=== PATIENT | female | born 1935 | race Caucasian/White ===

== ENCOUNTER → 2016-07-05 | Outpatient (CLI) | payer MEDICARE, OTHER ==
[~2016-07-05] MED LIST: ENBREL; LEVO88TA36; MELO-86; METH2.5T3 PO; PREDPOW63
[2016-07-05 12:13] LABS: Basophils # (auto) 0 uL; Eosinophils # (auto) 0.2 uL; Eosinophils % (auto) 1.8 % (0.0-7.0); Hematocrit 38.9 % (36.0-46.0); Hemoglobin 12.9 g/dL (12.2-16.2); Lymphocytes # (auto) 1.4 uL; Lymphocytes % (auto) 11.5 % (10.0-50.0); Mean Corpuscular Hgb Conc. 33.2 g/dL (32.0-36.0); Mean Corpuscular Volume 90.5 fL (80.0-100.0); Mean Platelet Volume 8.6 fL (7.4-10.4); Monocytes % (auto) 8.1 % (0.0-12.0); Neutrophils # (auto) 9.4 uL; Neutrophils % (auto) 78.6 % (37.0-80.0); Platelet Count (auto) 320 10^3/uL (140-450); White Blood Cell 11.9 10^3/uL (4.4-10.8)
[2016-07-05 12:33] LABS: Albumin 3.3 g/dL (3.4-5.0); BUN/Creatinine Ratio 16.5; Bilirubin, Total 0.3 mg/dL (0.2-1.0); Calcium 9.4 mg/dL (8.5-10.1); Potassium 3.9 mmol/L (3.5-5.1); Total Protein 8.2 g/dL (6.4-8.2)
== END | disposition home or self-care (01) ==
LOC: LAB 11:45
DX: I10 Essential (primary) hypertension (principal); M06.9 Rheumatoid arthritis, unspecified; M25.50 Pain in unspecified joint; D64.9 Anemia, unspecified; Z79.899 Other long term (current) drug therapy
CPT/HCPCS: 36415; 80053; 85025; 85652; 86141

== ENCOUNTER → 2016-09-20 | Outpatient (CLI) | payer MEDICARE, OTHER ==
[2016-09-20 12:12] LABS: Basophils # (auto) 0 uL; Basophils % (auto) 0.4 % (0.0-2.0); CONDITION Y; Eosinophils # (auto) 0.4 uL; Eosinophils % (auto) 5.4 % (0.0-7.0); Hematocrit 37.4 % (36.0-46.0); Hemoglobin 12.5 g/dL (12.2-16.2); Lymphocytes # (auto) 1.7 uL; Lymphocytes % (auto) 24.6 % (10.0-50.0); Mean Corpuscular Hemoglobin 31.5 pg (28.0-32.0); Mean Corpuscular Hgb Conc. 33.5 g/dL (32.0-36.0); Mean Corpuscular Volume 94.1 fL (80.0-100.0); Mean Platelet Volume 8.6 fL (7.4-10.4); Monocytes # (auto) 0.8 uL; Monocytes % (auto) 11.8 % (0.0-12.0); Neutrophils % (auto) 57.8 % (37.0-80.0); Platelet Count (auto) 327 10^3/uL (140-450); Red Cell Distribution Width 16.5 % (11.6-16.0); White Blood Cell 6.8 10^3/uL (4.4-10.8)
[2016-09-20 12:33] LABS: Albumin 3.4 g/dL (3.4-5.0); BUN/Creatinine Ratio 26.3; Bilirubin, Total 0.4 mg/dL (0.2-1.0); Potassium 3.5 mmol/L (3.5-5.1); Total Protein 7.7 g/dL (6.4-8.2)
== END | disposition home or self-care (01) ==
LOC: LAB 11:43
DX: I10 Essential (primary) hypertension (principal); M06.9 Rheumatoid arthritis, unspecified; M25.50 Pain in unspecified joint; D64.9 Anemia, unspecified; Z79.899 Other long term (current) drug therapy
CPT/HCPCS: 36415; 80053; 85025; 85652; 86141

== ENCOUNTER → 2016-12-13 | Outpatient (CLI) | payer MEDICARE, OTHER ==
[2016-12-13 12:49] LABS: Basophils # (auto) 0.1 uL; Basophils % (auto) 0.8 % (0.0-2.0); Eosinophils # (auto) 0.3 uL; Eosinophils % (auto) 4.3 % (0.0-7.0); Hematocrit 37.7 % (36.0-46.0); Hemoglobin 12.8 g/dL (12.2-16.2); Lymphocytes # (auto) 1.7 uL; Lymphocytes % (auto) 22.3 % (10.0-50.0); Mean Corpuscular Hemoglobin 32.8 pg (28.0-32.0); Mean Corpuscular Hgb Conc. 33.9 g/dL (32.0-36.0); Mean Corpuscular Volume 96.6 fL (80.0-100.0); Mean Platelet Volume 8.5 fL (6.9-10.8); Monocytes % (auto) 13.7 % (0.0-12.0); Neutrophils # (auto) 4.4 uL; Neutrophils % (auto) 58.9 % (37.0-80.0); Platelet Count (auto) 263 10^3/uL (140-450); Red Cell Distribution Width 14.1 % (11.8-14.3); White Blood Cell 7.4 10^3/uL (4.4-10.8)
[2016-12-13 12:56] LABS: Albumin 3.6 g/dL (3.4-5.0); BUN/Creatinine Ratio 20.3; Bilirubin, Total 0.4 mg/dL (0.2-1.0); Calcium 9.6 mg/dL (8.5-10.1); Potassium 4.4 mmol/L (3.5-5.1); Total Protein 7.6 g/dL (6.4-8.2)
== END | disposition home or self-care (01) ==
LOC: LAB 11:41
DX: I10 Essential (primary) hypertension (principal); I70.0 Atherosclerosis of aorta; E78.00 Pure hypercholesterolemia, unspecified; D64.9 Anemia, unspecified; M06.9 Rheumatoid arthritis, unspecified; M25.50 Pain in unspecified joint; Z79.899 Other long term (current) drug therapy
CPT/HCPCS: 36415; 80053; 85025; 85652; 86141

== ENCOUNTER → 2017-03-07 | Outpatient (CLI) | payer MEDICARE, OTHER ==
[~2017-03-07] MED LIST changes: -MELO-86; +MELO1TAB56
[2017-03-07 12:22] LABS: Basophils # (auto) 0 uL; Basophils % (auto) 0.7 % (0.0-2.0); Eosinophils # (auto) 0.6 uL; Eosinophils % (auto) 8.1 % (0.0-7.0); Hematocrit 37.6 % (36.0-46.0); Hemoglobin 12.7 g/dL (12.2-16.2); Lymphocytes # (auto) 1.4 uL; Lymphocytes % (auto) 20.7 % (10.0-50.0); Mean Corpuscular Hemoglobin 32.9 pg (28.0-32.0); Mean Corpuscular Hgb Conc. 33.7 g/dL (32.0-36.0); Mean Corpuscular Volume 97.5 fL (80.0-100.0); Monocytes # (auto) 0.9 uL; Neutrophils # (auto) 3.9 uL; Neutrophils % (auto) 57.5 % (37.0-80.0); Nucleated Red Blood Cells % 0.1 %; Platelet Count (auto) 308 10^3/uL (140-450); Red Blood Cells 3.85 10^6/uL (4.0-5.20); Red Cell Distribution Width 14.4 % (11.8-14.3); White Blood Cell 6.8 10^3/uL (4.4-10.8)
[2017-03-07 12:47] LABS: Albumin 3.7 g/dL (3.4-5.0); BUN/Creatinine Ratio 16.9; Bilirubin, Total 0.3 mg/dL (0.2-1.0); CRP High Sensitivity 0.23 mg/dL (< 0.3); Calcium 9.2 mg/dL (8.5-10.1); Potassium 4.3 mmol/L (3.5-5.1); Total Protein 7.8 g/dL (6.4-8.2)
== END | disposition home or self-care (01) ==
LOC: LAB 11:42
DX: I10 Essential (primary) hypertension (principal); M06.9 Rheumatoid arthritis, unspecified; E78.00 Pure hypercholesterolemia, unspecified; I70.0 Atherosclerosis of aorta; D64.9 Anemia, unspecified; Z79.899 Other long term (current) drug therapy
CPT/HCPCS: 36415; 80053; 85025; 85652; 86141

== ENCOUNTER → 2017-04-30 | Outpatient (CLI) | payer MEDICARE, OTHER ==
[2017-04-30 13:23] LABS: Basophils # (auto) 0 uL; Basophils % (auto) 0.6 % (0.0-2.0); Eosinophils # (auto) 0.3 uL; Eosinophils % (auto) 4.4 % (0.0-7.0); Hematocrit 39.6 % (36.0-46.0); Hemoglobin 13.1 g/dL (12.2-16.2); Lymphocytes # (auto) 1.7 uL; Lymphocytes % (auto) 21.9 % (10.0-50.0); Mean Corpuscular Hemoglobin 32.2 pg (28.0-32.0); Mean Corpuscular Hgb Conc. 33.2 g/dL (32.0-36.0); Mean Corpuscular Volume 97.1 fL (80.0-100.0); Monocytes % (auto) 13.2 % (0.0-12.0); Neutrophils # (auto) 4.6 uL; Neutrophils % (auto) 59.9 % (37.0-80.0); Nucleated Red Blood Cells % 0.1 %; Platelet Count (auto) 288 10^3/uL (140-450); Red Blood Cells 4.08 10^6/uL (4.0-5.20); Red Cell Distribution Width 13.7 % (11.8-14.3); White Blood Cell 7.7 10^3/uL (4.4-10.8)
[2017-04-30 13:50] LABS: Albumin 3.7 g/dL (3.4-5.0); Potassium 4.3 mmol/L (3.5-5.1)
[2017-04-30 13:52] LABS: BUN/Creatinine Ratio 16.2
[2017-04-30 13:54] LABS: Bilirubin, Total 0.4 mg/dL (0.2-1.0); Total Protein 8.4 g/dL (6.4-8.2)
== END | disposition home or self-care (01) ==
LOC: LAB 12:57
DX: M06.9 Rheumatoid arthritis, unspecified (principal); E03.9 Hypothyroidism, unspecified
CPT/HCPCS: 36415; 80053; 84443; 85025; 85652

== ENCOUNTER 2018-11-20 08:11 | Day surgery (SDC) | payer MEDICARE, OTHER ==
[2018-11-14 12:14] LABS: Basophils # (auto) 0.1 uL; Basophils % (auto) 0.6 % (0.0-2.0); Eosinophils # (auto) 0.2 uL; Eosinophils % (auto) 1.5 % (0.0-7.0); Hematocrit 40.9 % (36.0-46.0); Hemoglobin 13.6 g/dL (12.2-16.2); Lymphocytes # (auto) 1.8 uL; Lymphocytes % (auto) 17.2 % (10.0-50.0); Mean Corpuscular Hemoglobin 31.1 pg (28.0-32.0); Mean Corpuscular Hgb Conc. 33.3 g/dL (32.0-36.0); Mean Corpuscular Volume 93.2 fL (80.0-100.0); Monocytes # (auto) 0.8 uL; Monocytes % (auto) 7.7 % (0.0-12.0); Neutrophils # (auto) 7.8 uL; Platelet Count (auto) 280 10^3/uL (140-450); Red Blood Cells 4.38 10^6/uL (4.0-5.20); White Blood Cell 10.6 10^3/uL (4.4-10.8)
[2018-11-14 12:38] LABS: INR < 0.93 (0.9-1.15); Partial Thromboplastin Time 25.2 sec (23.64-32.05)
[2018-11-14 12:57] LABS: Albumin 3.6 g/dL (3.4-5.0); Calcium 9.8 mg/dL (8.5-10.1); Potassium 3.9 mmol/L (3.5-5.1)
[2018-11-14 13:00] LABS: BUN/Creatinine Ratio 12.8; Bilirubin, Total 0.4 mg/dL (0.2-1.0); Total Protein 8.1 g/dL (6.4-8.2)
[2018-11-14 13:38] LABS: Urine Bacteria NONE SEEN /hpf (None Seen); Urine Blood Negative /uL (Negative); Urine Specific Gravity 1.012 (1.001-1.035); Urine WBC 1 /hpf (0 - 5)
[~2018-11-20] VITALS: Ht 170.2 cm; Wt 65.8 kg
[~2018-11-20 08:11] MED LIST changes: +CALC600T4 PO; +CHOL200021 PO; -ENBREL; +FOLI1TAB6 PO; +KRIL1CAP11 PO; +LEUC5TAB PO; +LEVO75TA6 PO; -LEVO88TA36; -MELO1TAB56; +MULTTAB PO; +PRE5T PO; -PREDPOW63; +TURM500C3 OR; +VITATAB PO; +[UNRECOGNIZED DRUG - CODE] SC
[2018-11-20] MEDS ORDERED: CLINDAMYCIN 600MG IV 50 ML IV ONE (09:05)
[2018-11-20] MEDS ORDERED: ROPIVACAINE 0.5% (5MG/ML) 20ML AMPULE IJ ONE (09:14)
[2018-11-20] MEDS ORDERED: fentaNYL CITRATE 100 MCG/2 ML VL ONE (09:16)
[2018-11-20] MEDS ORDERED: PROPOFOL 10 MG/ML 20 ML IV ONE (09:16)
[2018-11-20] MEDS ORDERED: SODIUM CHLORIDE LOCK 10 ML ONE (09:16)
[2018-11-20] MEDS ORDERED: MIDAZOLAM HCL 1MG/1ML-2 ML VIAL ONE (09:16)
[2018-11-20] MEDS ORDERED: ONDANSETRON HCL 4 MG/2 ML VIAL ONE (09:16)
[2018-11-20] MEDS ORDERED: fentaNYL CITRATE 100 MCG/2 ML VL IV PRN (09:45)
[2018-11-20] MEDS ORDERED: METOCLOPRAMIDE HCL 5MG/ml INJ 2ml VIAL IV PRN (09:45)
[2018-11-20] MEDS ORDERED: KETOROLAC TROMETH 30 MG/ML 1ML VIAL IV ONE (09:45)
[2018-11-20] MEDS ORDERED: HYDROmorphone HCL 2 MG/ML VL IV PRN (09:45)
[2018-11-20] MEDS ORDERED: HYDROCORTISONE SOD SUCC 100 MG/2ML INJ VIAL ONE (10:04)
[2018-11-20 11:00] VITALS: BP 108/64
== END 2018-11-20 11:10 | disposition home or self-care (01) ==
LOC: SUR 08:11
PROVIDERS: ATTEND Podiatrist Foot & Ankle Surgery
DX: M20.22 Hallux rigidus, left foot (principal); M20.5X2 Other deformities of toe(s) (acquired), left foot; M19.072 Primary osteoarthritis, left ankle and foot; M85.872 Other specified disorders of bone density and structure, left ankle and foot; M06.9 Rheumatoid arthritis, unspecified; Z88.0 Allergy status to penicillin; Z87.891 Personal history of nicotine dependence
CPT/HCPCS: 28289; 36415; 80053; 81001; 85025; 85610; 85730; 88304; 88311; 93005; J1720; J2250; J2405; J2704; J2795; J3010; J3490